=== PATIENT | female | born 1990 | race Two or more races ===

== ENCOUNTER 2024-09-22 05:45 | Day surgery (SDC) | payer MEDICAID, SELFPAY ==
--- NOTE | 2024-09-19 10:54 | ESHP_ITS ---
RE: FANTA JAMISON : 1990 DATE OF ADMISSION: 09/22/2024 HISTORY OF PRESENT ILLNESS: This is a 34-year-old 3, para 2-0-1-2 with abnormal uterine bleeding and endometrial polyp, who desires future fertility, but has abnormal uterine bleeding, which is a significant quality of life issue for her. ALLERGIES: CODEINE AND METRONIDAZOLE. MEDICATIONS: None. PAST MEDICAL HISTORY: Shingles, gastroesophageal reflux disease, gestational diabetes, preeclampsia, endometrial polyp, depression and anxiety, asthma. SOCIAL HISTORY: She is . She denies any alcohol, drug use or smoking. FAMILY HISTORY: Diabetes, hypertension, heart disease, colon cancer. OBSTETRIC HISTORY: In 2019, 40-week normal vaginal delivery, complicated by preeclampsia. In 2020, 6-week, spontaneous AB, no D and C. In 2021, 40-week normal vaginal delivery, 6 pound 19 ounce male, no complications. PAST SURGICAL HISTORY: Laparoscopic cholecystectomy. REVIEW OF SYSTEMS: Denies any chest pain, palpitations, cough, fever, shortness of breath, or lower extremity pain. PHYSICAL EXAMINATION: VITAL SIGNS: Blood pressure is 128/72, heart rate 88, respirations 18, temperature 98.6. HEENT: Oropharynx and sclerae are clear. LUNGS: Clear to auscultation bilaterally. HEART: Regular rate and rhythm. ABDOMEN: Nontender. Old trocar scars noted. PELVIC: Deferred. EXTREMITIES: Nontender. SKIN: No gross rashes or lesions. NEUROLOGIC: No focal deficits. ASSESSMENT AND PLAN: Abnormal uterine bleeding, endometrial polyp. PLAN: Hysteroscopy, MyoSure removal of endometrial polyp, fractional dilatation and curettage. Informed consent was obtained. The patient made aware of the risks, complications, alternatives, and benefits of the proposed procedure and she agrees. She is aware of the risk of injury to bowel or bladder, uterus, pulmonary embolism, deep vein thrombosis, pelvic infection, reoperation to repair injury to internal organs, anesthesia complications, the possibility that a laparotomy needs to be performed to repair organs or control bleeding and the possibility the procedure is not able to be completed due to severe adhesions or technical difficulty. She verbalized understanding and agrees to proceed with the procedure with an understanding of the risks and complications. DT: 09:34:44 TT: 10:52:00 Ref: [id number] - TID: [id number] MTDD
[2024-09-21 07:24] VITALS: BMI 29.7
[2024-09-21 08:06] LABS: Basophils % (Auto) 1 % (0-2.5); Eosinophils # (Auto) 0.1 Thou/mm3 (0.0-0.5); Eosinophils % (Auto) 2 % (0-10); Hematocrit 36.9 % (36.0-46.0); Hemoglobin 11.9 g/dL (12.0-16.0); Immature Granulocytes % (Auto) 0 % (0-0); Immature Granulocytes Auto 0.01 Thou/mm3 (0.00-0.00); Lymphocytes # (Auto) 1.9 Thou/mm3 (1.0-4.8); Lymphocytes % (Auto) 29 % (10-50); Mean Corpuscular HGB Conc 32.2 g/dl (31.0-37.0); Mean Corpuscular Volume 81 fL (80-100); Monocytes # (Auto) 0.5 Thou/mm3 (0.0-0.8); Monocytes % (Auto) 8 % (0-12); Neutrophils # (Auto) 3.8 Thou/mm3 (1.8-7.7); Neutrophils % (Auto) 60 % (37-80); Nucleated Red Blood Cell % 0 /100 WBC (0); Platelet Count 259 Thou/mm3 (140-440); Red Blood Count 4.58 Miln/mm3 (4.00-5.20); White Blood Count 6.4 Thou/mm3 (3.6-11.0)
[2024-09-21 08:25] LABS: Partial Thromboplastin Time 30.6 Seconds (22.0-36.0); Prothrombin Time 10.9 Seconds (9.0-12.2)
[2024-09-21 08:28] LABS: Alanine Aminotransferase 18 U/L (10-49); Albumin, Serum 4.4 gm/dL (3.5-5.0); Albumin/Globulin Ratio 1.7 (1.2-2.2); Alkaline Phosphatase 73 U/L (46-116); Anion Gap 6 (7-16); Aspartate Amino Transferase 15 U/L (0-34); BUN/Creatinine Ratio 20 Ratio (12-20); Beta HCG,Quantitative < 1 mIU/mL (<5.0); Bilirubin,Total 0.3 mg/dL (0.3-1.2); Blood Urea Nitrogen 14 mg/dL (9-23); Calcium 9.9 mg/dL (8.3-10.6); Calcium (Corrected) 9.9 mg/dL (8.5-10.1); Carbon Dioxide 25.6 mMol/L (20.0-31.0); Chloride 107 mMol/L (98-107); Creatinine (Component) 0.7 mg/dL (0.6-1.3); Estimated Creatinine Clearance 108.4 mL/min (>60); Globulin 2.6 gm/dL (2.3-3.5); Glucose 101 mg/dL (74-106); Osmolality,Calculated 278 (275-295); Potassium 4.2 mMol/L (3.4-5.1); Sodium 139 mMol/L (136-145); eGFR > 60 See Note
[2024-09-22 06:10] VITALS: BP 138/84; PULSE 82; RESP 18; TEMP 36.4; O2SAT 98; BMI 29.7
[2024-09-22] MEDS: RINGERS LACTATED 1000 ML 1,000 ML 30 ML IV (06:17)
[2024-09-22 08:22] VITALS: BP 115/91; PULSE 84; RESP 12; TEMP 36.2; O2SAT 100
--- NOTE | 2024-09-22 08:22 | SUR.PHASEI ---
pt received from OR in recovery bay 1. pt asleep but responds to voice, breathing unlabored on oxymask 6l. v/s stable. pt dressing peripad cdi. report received from Dr. Huff and Ethel FISCHER.
[2024-09-22 08:30] VITALS: BP 119/87; PULSE 85; RESP 18; TEMP 36.2; O2SAT 98
--- NOTE | 2024-09-22 08:31 | SUR.PHASEI ---
pt able to tolerate oral fluids without difficulty swallowing or nausea/vomiting.
[2024-09-22 08:35] VITALS: BP 112/79; PULSE 74; RESP 20; TEMP 36.4; O2SAT 98
[2024-09-22 08:40] VITALS: BP 106/80; PULSE 73; RESP 16; TEMP 36.3; O2SAT 98
[2024-09-22 08:55] VITALS: BP 115/79; PULSE 69; RESP 15; TEMP 36.2; O2SAT 99
--- NOTE | 2024-09-22 09:10 | SUR.PHASEII ---
pt awake and alert, breathing unlabored on room air. v/s stable. pt dressing peripad cdi. pt able to ambulate to wheelchair with steady gait. d/c instructions given with Han, all questions answered. pt d/c via wheelchair with all belongings.
--- NOTE | 2024-09-22 10:42 | ESOP_ITS ---
RE: FANTA JAMISON : 1990 DATE OF OPERATION: 09/22/2024 PREOPERATIVE DIAGNOSES: 1. Abnormal uterine bleeding. 2. Endometrial polyp. POSTOPERATIVE DIAGNOSES: 1. Abnormal uterine bleeding. 2. Endometrial polyp. PROCEDURE PERFORMED: Hysteroscopy, MyoSure removal of endometrial polyp and fractional dilatation and curettage. SURGEON: [place] Steven DO SWEDGER: None. ANESTHESIA: General. ANESTHESIOLOGIST: Dr. Huff ESTIMATED BLOOD LOSS: 5 mL COMPLICATIONS: None. COUNTS: Correct. PATHOLOGY: 1. Endometrial polyp. 2. Endocervical curettings. 3. Endometrial curettings. FINDINGS: The uterus sounds to 7.5 cm anteverted. Endometrial polyp at the anterior fundal aspect of the uterus measuring approximately 3 x 1 cm that was spreading with a broad base and broad polyp face. There were no other distortions or irregularities of the uterine cavity. The endocervix appeared grossly within normal limits. DESCRIPTION OF PROCEDURE: After appropriate informed consent was obtained and the patient was made aware of the risks, complications, alternatives, and benefits of the proposed procedure, she was taken to the operating room where she underwent induction of general anesthesia. She was placed in the dorsal lithotomy position. She was prepped and draped in the usual sterile fashion. A timeout was performed. Speculum was placed in the vagina. A single-tooth tenaculum was used to grasp the anterior lip of the cervix. The cervix was dilated to accommodate the 5.5 mm Omni hysteroscope. The hysteroscope was then utilized to visualize the endocervix and uterine cavity and using the MyoSure reach, the endometrial polypectomy was performed. The endocervix was curetted and specimen sent to Pathology. The uterine cavity was curetted and specimen sent to Pathology. There was some bleeding noted at the anterior lip of the cervix at the end of the procedure. Using the 2-0 chromic suture, hemostasis was achieved. All instruments were removed from the vagina. She was reversed from general anesthesia in the supine position and transferred to the recovery room in stable condition. She tolerated the procedure well. Counts were correct. I discussed with the patient's , the nature of her condition, the intraoperative findings, and expectation for recovery. All questions answered. DT: 08:26:09 TT: 10:40:00 Ref: [id number] - TID: [id number]
== END 2024-09-22 09:10 | disposition home or self-care (01) ==
PROVIDERS: PCP Internal Medicine; Referring Provider Specialist; Visit Provider Specialist
PROC: 0U5B8ZZ Destruction of Endometrium, Via Natural or Artificial Opening Endoscopic (ICD-10-PCS; CPT 58563; principal; 2024-09-22 07:30)
DX: N84.0 Polyp of corpus uteri (principal); Z80.0 Family history of malignant neoplasm of digestive organs; Z82.49 Family history of ischemic heart disease and other diseases of the circulatory system; Z83.3 Family history of diabetes mellitus; J45.909 Unspecified asthma, uncomplicated; K21.9 Gastro-esophageal reflux disease without esophagitis; N72 Inflammatory disease of cervix uteri
CPT/HCPCS: 58558; 36415; 80053; 84702; 85025; 85610; 85730; 86850; 86900; 86901; A4217; A4649; J0690; J1100; J1885; J2250; J2405; J2704; J3010; J7120